=== PATIENT | female | born 1960 | race Caucasian/White ===

== ENCOUNTER → 2016-09-27 | Outpatient (CLI) | payer OTHER ==
--- NOTE | 2016-09-27 09:46 | REPMRS ---
Patient History The patient states she has not had a clinical breast exam in over a year. Patient is postmenopausal. Family history of pancreatic cancer in father at age 58, breast cancer in mother at age 50 or over, and breast cancer in maternal grandmother at age 50 or over. Digital Woman Screen Mammo: September 27, 2016 - Exam #: [id number] Bilateral CC and MLO view(s) were taken. Technologist: Simona Horowitz, Technologist Prior study comparison: July 07, 2015, bilateral digital mammo screening bilat, performed at [facility]. September 09, 2014, digital woman screen mammo performed at [facility]. FINDINGS: The breast tissue is heterogeneously dense. This may lower the sensitivity of mammography. There has been no change in the appearance of the mammogram from the prior studies. There is a moderate amount of residual fibroglandular tissue which is fairly symmetric. There is no interval development of dominant mass, areas of architectural distortion, or clustered microcalcification typical of malignancy. ASSESSMENT: BI-RADS/ACR category 1 mammogram. Negative. Given the family history and dense breast parenchyma, MRI of the breasts is recommended. Recommendation Routine screening mammogram in 1 year (for women over age 40). This mammogram was interpreted with the aid of an FDA-approved computer-aided dectection system. Electronically Signed By: Brian Romero MD 09/27/16 0946
== END ==
LOC: M WHC 08:22
PROVIDERS: ATTEND Internal Medicine
DX: Z12.31 Encounter for screening mammogram for malignant neoplasm of breast (principal)

== ENCOUNTER → 2016-10-28 | Outpatient (REF) ==
--- NOTE | 2016-10-28 12:50 | REP ---
RIGHT WRIST SERIES: Four views. HISTORY: Right wrist pain. Possible fracture. FINDINGS: Four views right wrist demonstrate mild diffuse osteopenia. There is moderate osteoarthritis at the 1st carpometacarpal articulation with joint space narrowing, and somewhat fragmented spurring. Mild dorsal carpal swelling is seen on the lateral view. No erosive change is seen. No fracture is noted. IMPRESSION: Osteoarthritic changes at the 1st [facility] joint. No fracture or traumatic abnormality noted. Signed by Wu Michelle MD 10/28/2016 02:46 P
== END ==
LOC: M RAD 12:02
PROVIDERS: ATTEND Internal Medicine
DX: M25.531 Pain in right wrist (principal)

== ENCOUNTER → 2017-10-31 | Outpatient (CLI) | payer OTHER | LOC: M WHC 08:45 | DX: Z12.31 Encounter for screening mammogram for malignant neoplasm of breast (principal) | CPT/HCPCS: 77067 ==

== ENCOUNTER → 2018-11-02 | Outpatient (CLI) | payer OTHER ==
--- NOTE | 2018-11-02 14:03 | REPMRS ---
Patient History The patient states she had a clinical breast exam in 08/2018. Patient is postmenopausal. Family history of breast cancer at age 59 in mother, breast cancer at age 50 or over in maternal grandmother, pancreatic cancer at age 58 in father. 3D TOMOSYNTHESIS WAS PERFORMED. [facility] Digital Woman Screen Mammo: November 02, 2018 - Exam #: [id number] Bilateral CC and MLO view(s) were taken. Technologist: Vivi Macdonald Technologist Prior study comparison: October 31, 2017, bilateral digital woman screen mammo performed at [facility]. September 27, 2016, digital woman screen mammo performed at [facility]. FINDINGS: The breast tissue is heterogeneously dense. This may lower the sensitivity of mammography. There has been no change in the appearance of the mammogram from the prior studies. There is a moderate amount of residual fibroglandular tissue which is fairly symmetric. There is no interval development of dominant mass, areas of architectural distortion, or clustered microcalcification typical of malignancy. Assessment: BI-RADS/ACR category 1 mammogram. Negative Mammogram. Recommendation Routine screening mammogram in 1 year (for women over age 40). This mammogram was interpreted with the aid of an FDA-approved computer-aided dectection system. Electronically Signed By: Brian Romero MD 11/02/18 6750
== END ==
LOC: M WHC 13:16
PROVIDERS: ATTEND Nurse Practitioner Family
DX: Z12.31 Encounter for screening mammogram for malignant neoplasm of breast (principal)

== ENCOUNTER → 2018-11-17 | Outpatient (CLI) | payer OTHER ==
--- NOTE | 2018-11-17 10:14 | REP ---
THYROID ULTRASOUND: Real-time sonographic evaluation of the thyroid performed. Both lobes of the thyroid are normal in size, right lobe measuring 4.1 x 1.8 x 1.5 cm and left lobe 4.0 x 1.7 x 1.3 cm. There is a hypoechoic, probably solid nodule in the right upper pole, 4 mm. There is a nodule in the right lower pole, which is predominantly solid with a peripheral cystic component measuring 1.3 x 0.8 x 0.9 cm. There is an adjacent 5 mm cyst in the right lower pole. There is a 2 mm cyst in the isthmus. In the left lobe, there is a 3 mm hypoechoic nodule in the mid aspect and another 4 mm hypoechoic nodule in the lower pole. IMPRESSION: Bilateral cysts and nodules in both lobes of the thyroid as discussed above. The largest is in the right lower pole and is predominantly solid with a peripheral cystic component. This measures 1.3 x 0.8 x 0.9 cm. Recommend followup ultrasound in 6 months. Electronically Signed by Brian Romero MD 11/17/2018 04:35 P
== END ==
LOC: M RAD 09:11
PROVIDERS: ATTEND Nurse Practitioner Family
DX: E04.1 Nontoxic single thyroid nodule (principal)

== ENCOUNTER → 2019-05-10 | Outpatient (CLI) | payer OTHER ==
--- NOTE | 2019-05-16 14:48 | DEXA ---
AP SPINE L1 - L4 0.805 -3.1 -2.0 LT FEMUR TOTAL 0.747 -2.1 -1.2 LT NECK 0.803 -1.7 -0.5 RT FEMUR TOTAL 0.755 -2.0 -1.1 RT NECK 0.768 -1.9 -0.8 TOTAL BODY TOTAL OTHER COMMENTS: There is low bone density of the hips. There is osteoporosis of the spine. FOLLOW-UP: Recommendation for the next bone density exam: 2 years. EDE
== END ==
LOC: M WHC 10:06
PROVIDERS: ATTEND Internal Medicine
DX: M81.0 Age-related osteoporosis without current pathological fracture (principal); M85.851 Other specified disorders of bone density and structure, right thigh; M85.852 Other specified disorders of bone density and structure, left thigh

== ENCOUNTER → 2019-05-10 | Outpatient (CLI) | payer OTHER ==
--- NOTE | 2019-05-10 21:02 | REP ---
Clinical: Lower abdominal pain. Technique: Axial noncontrast images from the lung bases to the pubic symphysis with coronal and sagittal re-formations. Findings: Lung bases are clear. Liver, spleen, pancreas, gallbladder, bilateral adrenal glands and kidneys are normal for noncontrast evaluation. The enteric system is without obstruction or acute inflammatory process. Normal terminal ileum and appendix are identified in the right lower quadrant. Scattered colonic and sigmoid diverticula noted without acute diverticulitis. Pelvis demonstrates normal bladder and age-appropriate uterus/adnexa. No pelvic fluid or ascites. No free air. No adenopathy. Abdominal aorta demonstrates atherosclerotic changes without aneurysm. Musculoskeletal structures intact without focal abnormality. Impression: 1. No acute abdominopelvic pathology appreciated. 2. Scattered diverticulosis without acute diverticulitis. Electronically Signed by Surinder Gao MD 05/10/2019 08:54 P
== END ==
LOC: M RAD 07:57
PROVIDERS: ATTEND Internal Medicine
DX: R10.30 Lower abdominal pain, unspecified (principal); K57.90 Diverticulosis of intestine, part unspecified, without perforation or abscess without bleeding; M81.0 Age-related osteoporosis without current pathological fracture; M85.851 Other specified disorders of bone density and structure, right thigh; M85.852 Other specified disorders of bone density and structure, left thigh; N89.8 Other specified noninflammatory disorders of vagina
CPT/HCPCS: 74176; 77080; 81002; 87210; 87661; G0463

== ENCOUNTER → 2019-05-10 | Outpatient (REF) | payer OTHER ==
[2019-05-10 15:47] LABS: CHLAMYDIA DNA AMPLIFICATION NEGATIVE (NEGATIVE); GC DNA AMPLIFICATION NEGATIVE (NEGATIVE)
== END ==
LOC: M SFHCWAGY 13:25
PROVIDERS: ATTEND Nurse Practitioner Family
DX: N89.8 Other specified noninflammatory disorders of vagina (principal)
CPT/HCPCS: 81002; 87210; 87661; G0463

== ENCOUNTER → 2019-11-19 | Outpatient (CLI) | payer OTHER ==
--- NOTE | 2019-11-19 13:02 | REPMRS ---
Patient History The patient states she has not had a clinical breast exam in over a year. Family history of breast cancer at age 59 in mother, breast cancer at age 50 or over in maternal grandmother, pancreatic cancer at age 58 in father. 3D TOMOSYNTHESIS WAS PERFORMED. The Cordelia Chan lifetime risk for breast cancer is 15.2%. 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 Digital Woman Screen Mammo: November 19, 2019 - Exam #: [id number] Bilateral CC and MLO view(s) were taken. Technologist: Annie Richards, Technologist Prior study comparison: November 02, 2018, bilateral digital woman screen mammo performed at [facility]. October 31, 2017, bilateral digital woman screen mammo performed at [facility]. FINDINGS: The breast tissue is heterogeneously dense. This may lower the sensitivity of mammography. There has been no change in the appearance of the mammogram from the prior studies. There is a moderate amount of residual fibroglandular tissue which is fairly symmetric. There is no interval development of dominant mass, areas of architectural distortion, or clustered microcalcification typical of malignancy. Assessment: BI-RADS/ACR category 1 mammogram. Negative Mammogram. Recommendation Routine screening mammogram in 1 year (for women over age 40). This mammogram was interpreted with the aid of an FDA-approved computer-aided dectection system. Electronically Signed By: Brian Romero MD 11/19/19 3225
== END ==
LOC: M WHC 12:18
PROVIDERS: ATTEND Internal Medicine
DX: Z12.31 Encounter for screening mammogram for malignant neoplasm of breast (principal); Z80.3 Family history of malignant neoplasm of breast; Z80.0 Family history of malignant neoplasm of digestive organs

== ENCOUNTER → 2020-11-25 | Outpatient (CLI) | payer OTHER ==
--- NOTE | 2020-11-25 15:13 | REPMRS ---
Patient History The patient states she has not had a clinical breast exam in over a year. Patient is postmenopausal. Family history of breast cancer at age 59 in mother, breast cancer at age 50 or over in maternal grandmother, pancreatic cancer at age 58 in father. Patient states no breast complaints today. Patient has signed MRS History Sheet. Digital Woman Screen Mammo: November 25, 2020 - Exam #: [id number] Bilateral CC and MLO view(s) were taken. Technologist: RT Per Prior study comparison: November 19, 2019, bilateral digital woman screen mammo performed at [facility]. November 02, 2018, bilateral digital woman screen mammo performed at [facility]. October 31, 2017, bilateral digital woman screen mammo performed at [facility]. FINDINGS: The breast tissue is heterogeneously dense. This may lower the sensitivity of mammography. The [employer] volumetric breast density category is: C. There is a moderate amount of heterogeneously dense fibroglandular tissue which is fairly symmetric. There is no interval development of dominant mass, architectural distortion, or grouped microcalcification typical of malignancy. There has been no change in the appearance of the mammogram from the prior studies. 3-D tomosynthesis shows no additional findings. Assessment: BI-RADS/ACR category 1 mammogram. Negative Mammogram. Recommendation Routine screening mammogram of both breasts in 1 year (for women over age 40). This patient's [facility] Lifetime Breast Cancer RIsk is estimated at 14.7 %. This mammogram was interpreted with the aid of an FDA-approved computer-aided dectection system. Electronically Signed By: Manish Michelle MD 11/25/20 1433
== END ==
LOC: M WHC 14:21
PROVIDERS: ATTEND Internal Medicine
DX: Z12.31 Encounter for screening mammogram for malignant neoplasm of breast (principal); Z80.3 Family history of malignant neoplasm of breast; Z80.0 Family history of malignant neoplasm of digestive organs

== ENCOUNTER → 2020-12-10 | Outpatient (CLI) | payer OTHER ==
--- NOTE | 2020-12-10 16:32 | REP ---
INDICATION: B/L DENSE BREAST U/S. COMPARISON: Mammogram 11/25/2020. TECHNIQUE: Real-time sonographic evaluation of entire bilateral breasts performed. FINDINGS: No cystic or solid nodule is seen in a portion of either breast. IMPRESSION: BIRADS/ACR category 1, negative whole breast ultrasound bilaterally. No suspicious cystic or solid nodule seen. RECOMMENDATION: Recommend follow-up screening mammogram in 1 year, as well as bilateral screening ultrasound if clinically appropriate. <Electronically signed by Brian Romero > 12/10/20 1504
== END ==
LOC: M WHC 15:15
PROVIDERS: ATTEND Internal Medicine
DX: R92.2 Inconclusive mammogram (principal)

== ENCOUNTER → 2021-12-09 | Outpatient (CLI) | payer OTHER | LOC: M WHC 10:30 | PROVIDERS: ATTEND Internal Medicine | DX: Z12.31 Encounter for screening mammogram for malignant neoplasm of breast (principal) ==

== ENCOUNTER → 2022-12-16 | Outpatient (CLI) | payer OTHER | LOC: M WHC 15:46 | PROVIDERS: ATTEND Internal Medicine | DX: Z12.31 Encounter for screening mammogram for malignant neoplasm of breast (principal); R92.333 Mammographic heterogeneous density, bilateral breasts ==

== ENCOUNTER → 2023-12-22 | Outpatient (CLI) | payer OTHER | LOC: M WHC 07:32 | PROVIDERS: ATTEND Internal Medicine | DX: Z12.31 Encounter for screening mammogram for malignant neoplasm of breast (principal); R92.333 Mammographic heterogeneous density, bilateral breasts ==

== ENCOUNTER → 2024-07-05 | Outpatient (CLI) | payer OTHER | LOC: M PLAIMG 14:49 | PROVIDERS: ATTEND Physician Assistant | DX: R94.31 Abnormal electrocardiogram [ECG] [EKG] (principal) ==

== ENCOUNTER → 2024-12-24 | Outpatient (CLI) | payer OTHER | LOC: M WHC 13:38 | PROVIDERS: ATTEND Internal Medicine | DX: Z12.31 Encounter for screening mammogram for malignant neoplasm of breast (principal) ==